=== PATIENT | female | born 1955 | race Hispanic/Latino ===

== ENCOUNTER → 2020-08-04 | Outpatient (CLI) | payer OTHER ==
[~2020-08-04] MED LIST: ASPIR 8181 MG PO; ASPIRIN; BYSTOLIC; COVID-19 VACC, MRNA(MODERNA)/PF 100 MCG/0.5 ML VIAL IM ONE; DEXILANT; LEVAQUIN; LEVOTHYROXINE100 MC1 PO; METOPROLOL SUCC50 MG PO; NEXIUM40 MG PO
== END ==
LOC: VACCPMC 13:33
DX: Z23 Encounter for immunization (principal); Z20.828 Contact with and (suspected) exposure to other viral communicable diseases

== ENCOUNTER → 2020-09-08 | Outpatient (CLI) | payer OTHER | END | DRG 951 | LOC: VACCPMC 09:30 | DX: Z23 Encounter for immunization (principal); Z20.822 Contact with and (suspected) exposure to COVID-19 | CPT/HCPCS: 0012A; 91301 ==